=== PATIENT | female | born 1950 | race Hispanic/Latino ===

== ENCOUNTER 2022-03-03 23:00 | Inpatient (IN) | payer OTHER, MEDICARE ==
[~2022-03-03] VITALS: Ht 157.5 cm; Wt 79.3 kg
[2022-03-03 23:30] LABS: BASOPHILS % (AUTO) 0.1 % (0.0-5.0); EOSINOPHILS % (AUTO) 1.7 % (0.0-8.0); HEMATOCRIT 39.8 % (36-48); LYMPHOCYTES % (AUTO) 44.7 % (21.0-51.0); MEAN CORPUSCULAR HEMOGLOBIN 29.4 pg (27.0-33.0); MEAN CORPUSCULAR HGB CONC 32.9 g/dL (32.0-36.0); MEAN CORPUSCULAR VOLUME 89.2 fL (79-99); MONOCYTES % (AUTO) 6.1 % (3.0-13.0); NEUTROPHILS % (AUTO) 47.2 % (40.0-77.0); PLATELET COUNT (AUTO) 240 K/uL (130-400); RED BLOOD CELL COUNT(AUTO) 4.46 MIL/uL (4.00-5.50)
[2022-03-03 23:41] LABS: POTASSIUM 3.9 mmol/L (3.5-5.1)
[2022-03-03 23:45] LABS: BILIRUBIN,TOTAL 0.3 mg/dL (0.2-1.0); TOTAL PROTEIN, SERUM 7.8 g/dL (6.0-8.3)
[2022-03-03] MEDS ORDERED: DiphenhydrAMINE HCL 50 MG/ML VIAL ONE (23:50)
[2022-03-03] MEDS ORDERED: NITROGLYCERIN 1GM OINT 1 INCH/1GM TD ONE (23:54)
[2022-03-03] MEDS ORDERED: ASPIRIN 325MG TAB ONE (23:54)
[2022-03-04] MEDS ORDERED: DiphenhydrAMINE HCL 50 MG/ML VIAL IV ONE
[2022-03-04 01:05] LABS: APPEARANCE,URINE Clear (CLEAR); BILIRUBIN,URINE Negative (NEGATIVE); COLOR,URINE Yellow (YELLOW); GLUCOSE, URINE (UA) Negative (NEGATIVE); KETONES,URINE Negative (NEGATIVE); LEUKOCYTE ESTERASE ,URINE Negative (NEGATIVE); NITRATE,URINE Negative (NEGATIVE); OCCULT BLOOD,URINE Negative (NEGATIVE); PH,URINE 5.5 (5.0-8.0); PROTEIN,URINE Negative (NEGATIVE); UROBILINOGEN,URINE 0.2 mg/dL (0.2-1.0)
[2022-03-04] MEDS ORDERED: LABETALOL 20MG VIAL IV PRN (02:30)
[2022-03-04] MEDS ORDERED: METOPROLOL TARTRATE 1 MG/ML 5ML VIAL IV ONE (02:30)
[2022-03-04] MEDS ORDERED: ACETAMINOPHEN 325 MG TAB PO PRN ×2 (03:00)
[2022-03-04] MEDS ORDERED: ONDANSETRON 4MG INJ IV PRN (03:00)
[2022-03-04] MEDS ORDERED: MORPHINE 2 MG SYG IV PRN (03:00)
[2022-03-04 03:21] LABS: HEMOGLOBIN A1C 7.4 % (4.0-6.0)
[2022-03-04] MEDS: NITROGLYCERIN 1GM OINT 1 INCH/1GM TD SCH ×3 (04:18→18:20)
[2022-03-04] MEDS: 0.9%NACL 1000ML 1,000 ML IV SCH ×2 (04:25→15:26)
[2022-03-04 04:55] VITALS: BP 157/73
[2022-03-04] MEDS ORDERED: INSULIN HUMULIN R 100 UNIT/ML 3ML ONE (05:19)
[2022-03-04] MEDS ORDERED: LOSA100T2 PO (05:37)
[2022-03-04] MEDS: INSULIN HUMULIN R 100 UNIT/ML 3ML SQ SCH ×4 (05:58→20:12)
[2022-03-04 06:43] LABS: ALBUMIN 3.4 g/dL (3.5-5.0); BILIRUBIN,TOTAL 0.4 mg/dL (0.2-1.0); CREATININE 0.8 mg/dL (0.5-1.5); POTASSIUM 3.6 mmol/L (3.5-5.1); THYROID STIMULATING HORMONE 2.32 uIU/mL (0.36-3.74)
[2022-03-04 08:00] VITALS: BP 156/74
[2022-03-04] MEDS: FAMOTIDINE 20MG VIAL IV SCH ×2 (08:39→19:49)
[2022-03-04] MEDS: ENOXAPARIN SODIUM 40 MG/0.4 ML SYRINGE SQ SCH (08:40)
[2022-03-04] MEDS ORDERED: METOPROLOL TARTRATE 25 MG TAB PO SCH (09:00)
[2022-03-04 12:00] VITALS: BP 156/79
[2022-03-04 16:00] VITALS: BP 157/73
[2022-03-04] MEDS ORDERED: ATOR40TA69 PO (16:05)
[2022-03-04] MEDS ORDERED: METO50TA18 PO (16:05)
[2022-03-04] MEDS ORDERED: METF-446 PO (16:05)
[2022-03-04] MEDS ORDERED: ASPIRIN 325MG TAB PO ONE (18:30)
[2022-03-04] MEDS ORDERED: LOSARTAN 100 MG TABLET PO ONE (19:30)
[2022-03-04] MEDS: ATORVASTATIN 40 MG TABLET PO SCH (19:48)
[2022-03-04] MEDS: METOPROLOL TARTRATE 25 MG TAB PO SCH (19:49)
[2022-03-04 20:00] VITALS: BP 160/76
[2022-03-05] VITALS (9 sets, daily range): BP systolic 141–179; BP diastolic 54–98
[2022-03-05] MEDS: NITROGLYCERIN 1GM OINT 1 INCH/1GM TD SCH ×3 (02:30→21:15)
[2022-03-05 05:05] LABS: BASOPHILS % (AUTO) 0.1 % (0.0-5.0); EOSINOPHILS % (AUTO) 2.7 % (0.0-8.0); HEMATOCRIT 33.7 % (36-48); MEAN CORPUSCULAR HEMOGLOBIN 30.1 pg (27.0-33.0); MEAN CORPUSCULAR HGB CONC 33.8 g/dL (32.0-36.0); MEAN CORPUSCULAR VOLUME 88.9 fL (79-99); MONOCYTES % (AUTO) 8.2 % (3.0-13.0); NEUTROPHILS % (AUTO) 58.7 % (40.0-77.0); PLATELET COUNT (AUTO) 213 K/uL (130-400); RED BLOOD CELL COUNT(AUTO) 3.79 MIL/uL (4.00-5.50); RED CELL DISTRIBUTION WIDTH 12.2 % (11.0-15.5); WHITE BLOOD COUNT (AUTO) 10.2 K/uL (4.8-10.8)
[2022-03-05 05:25] LABS: CHOLESTEROL 136 mg/dL (<200); HDL CHOLESTEROL 49 mg/dL (35-85); LDL DIRECT 77 mg/dL (0-99); TRIGLYCERIDES 65 mg/dL (30-200)
[2022-03-05] MEDS: INSULIN HUMULIN R 100 UNIT/ML 3ML SQ SCH ×4 (05:37→20:41)
[2022-03-05] MEDS: FAMOTIDINE 20MG VIAL IV SCH ×2 (08:49→21:15)
[2022-03-05] MEDS: LOSARTAN 100 MG TABLET PO SCH (08:49)
[2022-03-05] MEDS: ASPIRIN 81 MG EC TAB PO SCH (08:49)
[2022-03-05] MEDS: METOPROLOL TARTRATE 25 MG TAB PO SCH ×2 (08:49→21:15)
[2022-03-05] MEDS: ENOXAPARIN SODIUM 40 MG/0.4 ML SYRINGE SQ SCH (08:53)
[2022-03-05] MEDS: REGADENOSON 0.4 MG/5 ML PF SYG IVP SCH ×2 (11:00→13:47)
[2022-03-05] MEDS ORDERED: AMLO5TAB4 PO (11:30)
[2022-03-05] MEDS ORDERED: AEC81 PO (11:30)
[2022-03-05] MEDS: AMLODIPINE 5 MG TAB PO SCH (12:51)
[2022-03-05] MEDS: ATORVASTATIN 40 MG TABLET PO SCH (21:15)
[2022-03-06] VITALS (11 sets, daily range): BP systolic 138–151; BP diastolic 49–79
[2022-03-06] MEDS: NITROGLYCERIN 1GM OINT 1 INCH/1GM TD SCH ×2 (03:34→11:00)
[2022-03-06 04:24] LABS: INR 1.05 (0.85-1.15); PROTHROMBIN TIME 11.4 SEC (9.6-11.6)
[2022-03-06 04:25] LABS: PARTIAL THROMBOPLASTIN TIME 24.8 SEC (26.3-35.5)
[2022-03-06] MEDS: INSULIN HUMULIN R 100 UNIT/ML 3ML SQ SCH ×3 (06:42→16:04)
[2022-03-06] MEDS: FAMOTIDINE 20MG VIAL IV SCH (08:40)
[2022-03-06] MEDS: ASPIRIN 81 MG EC TAB PO SCH (08:40)
[2022-03-06] MEDS: ENOXAPARIN SODIUM 40 MG/0.4 ML SYRINGE SQ SCH (09:00)
[2022-03-06] MEDS ORDERED: HEPARIN 10,000 UNIT/10ML (1,000 UNIT/ML) VIAL ONE (09:10)
[2022-03-06] MEDS ORDERED: IOHEXOL 350 MG/ML 100ML INFUS..BTL IV ONE (09:10)
[2022-03-06] MEDS ORDERED: NITROGLYCERIN 50MG VIAL ONE (09:10)
[2022-03-06] MEDS ORDERED: IOHEXOL-350 50ML VIAL IV ONE (09:10)
[2022-03-06] MEDS ORDERED: MIDAZOLAM HCL 1 MG/ML 2ML VIAL ONE (09:11)
[2022-03-06] MEDS ORDERED: LIDOCAINE HCL 400MG/20ML VIAL ONE (09:11)
[2022-03-06] MEDS ORDERED: FENTANYL CITRATE PF 50 MCG/1 ML 2ML VIAL ONE (09:11)
[2022-03-06] MEDS ORDERED: LABETALOL 20MG SYG IV ONE (09:26)
[2022-03-06] MEDS ORDERED: 0.9%NACL 1000ML 1,000 ML IV SCH (10:00)
[2022-03-06] MEDS: AMLODIPINE 5 MG TAB PO SCH (14:39)
[2022-03-06] MEDS: LOSARTAN 100 MG TABLET PO SCH (14:39)
[2022-03-06] MEDS: METOPROLOL TARTRATE 25 MG TAB PO SCH (14:39)
== END 2022-03-06 17:55 | disposition home or self-care (01) | DRG 286 ==
LOC: EDH 23:00 → INTOOBSV 03-04 02:08 → EDHIP 03-04 02:08 → OBSVTOIN 03-04 02:08 → UNDOADMOB 03-04 02:08 → EDHIP 03-04 02:43 → OBSVTOIN 03-04 02:43 → 4AH 03-04 04:40
PROVIDERS: ADMIT Hospitalist; ATTEND Hospitalist
PROC: 4A02XM4 Measurement of Cardiac Total Activity, External Approach (ICD-10-PCS; 2022-03-05)
PROC: 3E073KZ Introduction of Other Diagnostic Substance into Coronary Artery, Percutaneous Approach (ICD-10-PCS; 2022-03-05)
PROC: 4A023N7 Measurement of Cardiac Sampling and Pressure, Left Heart, Percutaneous Approach (ICD-10-PCS; principal; 2022-03-06)
PROC: B2111ZZ Fluoroscopy of Multiple Coronary Arteries using Low Osmolar Contrast (ICD-10-PCS; 2022-03-06)
PROC: B2151ZZ Fluoroscopy of Left Heart using Low Osmolar Contrast (ICD-10-PCS; 2022-03-06)
DX: I16.0 Hypertensive urgency (principal); I50.31 Acute diastolic (congestive) heart failure; I24.9 Acute ischemic heart disease, unspecified; L50.9 Urticaria, unspecified; E11.9 Type 2 diabetes mellitus without complications; I10 Essential (primary) hypertension; E78.5 Hyperlipidemia, unspecified; I45.10 Unspecified right bundle-branch block; E78.00 Pure hypercholesterolemia, unspecified; F41.0 Panic disorder [episodic paroxysmal anxiety]; Z79.84 Long term (current) use of oral hypoglycemic drugs; Z91.018 Allergy to other foods; Z79.899 Other long term (current) drug therapy
CPT/HCPCS: 36415; 71045; 78452; 80053; 80061; 81003; 82948; 83036; 83690; 83880; 84443; 84484; 85025; 85610; 85651; 85730; 87040; 93005; 93017; 93458; 96374; 99156; 99157; A9500; C1760; C1894; G0378; J1200; J1644; J1650; J1815; J2250; J2785; J3010; J3490; Q9967

== ENCOUNTER 2022-07-19 12:44 | Emergency (ER) | payer OTHER, MEDICARE ==
[~2022-07-19] VITALS: Ht 149.9 cm; Wt 78.9 kg
[~2022-07-19 12:44] MED LIST: AEC81 PO; AMLO5TAB4 PO; ATOR40TA69 PO; LOSA100T2 PO; METF-446 PO; METO50TA18 PO
[2022-07-19 13:29] LABS: BASOPHILS % (AUTO) 0.3 % (0.0-5.0); EOSINOPHILS % (AUTO) 1.3 % (0.0-8.0); HEMATOCRIT 37.7 % (36-48); LYMPHOCYTES % (AUTO) 23.5 % (21.0-51.0); MEAN CORPUSCULAR VOLUME 88.3 fL (79-99); MONOCYTES % (AUTO) 6.7 % (3.0-13.0); NEUTROPHILS % (AUTO) 67.8 % (40.0-77.0); PLATELET COUNT (AUTO) 233 K/uL (130-400); RED BLOOD CELL COUNT(AUTO) 4.27 MIL/uL (4.00-5.50); RED CELL DISTRIBUTION WIDTH 11.9 % (11.0-15.5); WHITE BLOOD COUNT (AUTO) 10.4 K/uL (4.8-10.8)
[2022-07-19 13:37] LABS: HEMOGLOBIN A1C 7.8 % (4.0-6.0)
[2022-07-19 13:40] LABS: POTASSIUM 3.7 mmol/L (3.5-5.1)
[2022-07-19 13:45] LABS: ALBUMIN 3.9 g/dL (3.5-5.0)
[2022-07-19 13:53] LABS: APPEARANCE,URINE CLEAR (CLEAR); BILIRUBIN,URINE NEGATIVE (NEGATIVE); COLOR,URINE YELLOW (YELLOW); GLUCOSE, URINE (UA) 100 mg/dL (NEGATIVE); KETONES,URINE NEGATIVE (NEGATIVE); LEUKOCYTE ESTERASE ,URINE TRACE (NEGATIVE); NITRATE,URINE NEGATIVE (NEGATIVE); OCCULT BLOOD,URINE NEGATIVE (NEGATIVE); PROTEIN,URINE NEGATIVE (NEGATIVE); UROBILINOGEN,URINE 0.2 mg/dL (0.2-1.0)
[2022-07-19 14:14] LABS: BACTERIA,URINE Rare /HPF (None Seen); RBC,URINE None Seen /HPF (0-1); SQUAMOUS EPITHELIAL CELL,UR 0-2 /HPF (0-2); WBC,URINE 0-1 /HPF (0-1)
[2022-07-19 15:27] VITALS: BP 149/68
[2022-07-19] MEDS ORDERED: HYDROXYZINE 25 MG TABLET PO ONE (15:30)
== END 2022-07-19 15:50 | disposition home or self-care (01) ==
LOC: EDH 12:44
DX: F41.9 Anxiety disorder, unspecified (principal); I10 Essential (primary) hypertension; E78.00 Pure hypercholesterolemia, unspecified; E11.9 Type 2 diabetes mellitus without complications; Z79.82 Long term (current) use of aspirin; Z79.84 Long term (current) use of oral hypoglycemic drugs; Z79.899 Other long term (current) drug therapy
CPT/HCPCS: 36415; 71045; 80053; 81001; 82948; 83036; 83880; 84484; 85025; 85378; 93005